=== PATIENT | female | born 1980 | race African-American/Black ===

== ENCOUNTER 2024-02-14 08:17 | Emergency (ER) | payer SELFPAY | END 2024-02-14 08:30 | disposition home or self-care (01) | LOC: CSHERS 08:17 | DX: S80.12XA Contusion of left lower leg, initial encounter (principal); F17.210 Nicotine dependence, cigarettes, uncomplicated; W22.8XXA Striking against or struck by other objects, initial encounter; Y99.0 Civilian activity done for income or pay | CPT/HCPCS: 99283 ==